=== PATIENT | female | born 1960 | race African-American/Black ===

== ENCOUNTER → 2016-12-18 | Outpatient (CLI) | payer OTHER | LOC: WI 07:44 | PROVIDERS: ATTEND Internal Medicine Geriatric Medicine | DX: N63 Unspecified lump in breast (principal) | CPT/HCPCS: 76642; G0204; 77066 ==

== ENCOUNTER 2017-07-23 07:35 | Day surgery (SDC) | payer OTHER ==
--- NOTE | 2017-07-17 11:12 | HISTORY AND PHYSICAL E ---
History and Physical NAME: MIRANDA VASQUEZ : 1960 AGE: 57Y ADMITTED: 07/23/2017 ROOM: CHIEF COMPLAINT: Patient has rectal bleeding; change in bowel habits; reflux. A planned colonoscopy. HISTORY OF PRESENT ILLNESS: Upper scope done recently showing gastritis, esophagitis, duodenitis. She did have an ultrasound of the abdomen which was essentially negative. The patient was seen in 2013 for abdominal pain. Patient presented at this time regarding colon exam. The patient is being seen by Dr. Rosales. Patient presented with changed bowel habits and rectal bleeding. I saw her in 2013 for abdominal pain, severe exacerbation of reflux. REVIEWING OF SYSTEMS: CARDIAC: Negative. ENDOCRINE: Patient has a mass. GASTROINTESTINAL: Reflux. ONCOLOGY/HEMATOLOGY: Negative. FAMILY HISTORY: Father had CA, prostate. Mom has diabetes. PHYSICAL EXAMINATION: VITAL SIGNS: Blood pressure 120/80. Pulse 80. Respirations 18. Temperature is 98. HEAD, EYES, NOSE, THROAT: Normal. NECK: Is supple. LUNGS: Are clear. ABDOMEN: Soft. NEUROLOGIC: Examination negative. MEDICATIONS: Are: 1. Tramadol. 2. Vicodin. 3. Zyrtec. 4. Percocet. 5. Levaquin. 6. She takes Mylanta, Dexilant, and Zantac. CONCLUSION: 1. COLON SCREENING. 2. RECTAL BLEEDING PLAN: Admit 07/23/2017. Today is 07/16/2017. DICTATING PHYSICIAN: AMBROSIO AJ M.D. [id number] [id number] Y#: [id number] ID: [id number] JOB#: [id number] ACCT: [id number] cc:HAI ROSALES M.D., MAHMOUD M.D. >
--- NOTE | 2017-07-22 13:00 | HISTORY AND PHYSICAL E ---
History and Physical NAME: MIRANDA VASQUEZ : 1960 AGE: 57Y ADMITTED: 07/23/2017 ROOM: CHIEF COMPLAINT: Patient admitted for colon screening. HISTORY OF PRESENT ILLNESS: The patient presented for colon screening. I saw her in 2013. Upper scope showed no ulcers, negative H pylori. Her primary is Dr. Rosales. The patient had upper scope. She does have reflux. Upper scope done revealed the following: She did have esophagitis, localized erosions in the duodenum, not bleeding; no ulcers. Her primary is Dr. Rosales. Ultrasound shows no significant intra-abdominal changes. Again, the patient has abdominal pain. PAST MEDICAL HISTORY: The patient has adrenal mass. PAST SURGICAL HISTORY: The patient did have: 1. . 2. C-spine fusion. 3. Hysterectomy. MEDICATIONS: The patient takes: 1. Mylanta. 2. Zantac. 3. Dexilant. 4. Jagruti. 5. Claritin. FAMILY HISTORY: Father had CA of the diabetes. Mom had diabetes. REVIEWING OF SYSTEMS: ENDOCRINE: She has adrenal mass. ONCOLOGY/HEMATOLOGY: Negative. PHYSICAL EXAMINATION: GENERAL: Pleasant, alert, oriented. VITAL SIGNS: Blood pressure 120/80, pulse 80, respirations 16, temperature is 98. HEAD, EYES, EARS, NOSE, THROAT: Normal. ABDOMEN: Soft. NEUROLOGIC: Exam negative. CONCLUSION: 1. Colon screening. 2. Abdominal pain. 3. Reflux. PLAN: Patient for colon screening, changed bowel habits, rectal bleeding, bloating, reflux. The plan is colon screening. DICTATING PHYSICIAN: AMBROSIO AJ M.D. [id number] [id number] [facility]#: [id number] ID: [id number] JOB#: [id number] ACCT: [id number] cc:HAI ROSALES M.D., MAHMOUD M.D. >
[~2017-07-23 07:35] MED LIST: EPINEPHRINE INJ 1 MG/10 ML DISP.SYRIN ONE; FLUMAZENIL INJ 0.5 MG/5 ML VIAL ONE; GLUCAGON,HUMAN RECOMB 1 MG INJ ONE; GLYCOPYRROLATE INJ 0.4 MG/2 ML VIAL ONE; NALOXONE HCL INJ/PF 0.4 MG/1 ML SDV ONE; ONDANSETRON HCL INJ/PF 4 MG/2 ML SDV ONE
[2017-07-23] MEDS: MIDAZOLAM 2 MG/2 ML INJ ONE ×2 (08:16→08:25)
[2017-07-23] MEDS: FENTANYL CITRATE INJ/PF 100 MCG/2 ML AMPUL ONE ×2 (08:18→08:22)
[2017-07-23 09:48] VITALS: BP 110/60
[2017-07-23 11:03] LABS: ABSOLUTE MONOCYTES (AUTO) 0.3 10^3/uL (0.1-1.4); ABSOLUTE NEUT (AUTO) 3.8 10^3/uL (1.7-8.2); BASOPHILS % (AUTO) 0.5 % (0-2); EOSINOPHILS % (AUTO) 0.7 % (0-6); HEMATOCRIT 41.8 % (36.0-47.0); HEMOGLOBIN 13.5 g/dL (12.0-15.5); HGB HCT DIFFERENCE -1.3; LYMPHOCYTES % (AUTO) 19.3 % (13-45); MEAN CORPUSCULAR HEMOGLOBIN 27.2 pg (27.0-33.4); MEAN CORPUSCULAR HGB CONC 32.3 g/dL (32.0-36.0); MEAN CORPUSCULAR VOLUME 84 fl (80-97); MONOCYTES % (AUTO) 6.3 % (3-13); RED BLOOD COUNT 4.96 10^6/uL (3.72-5.28); RED CELL DISTRIBUTION WIDTH 13.1 % (11.5-14.0); SEGMENTED NEUTROPHILS % (AUTO) 73.2 % (42-78); WHITE BLOOD COUNT 5.2 10^3/uL (4.0-10.5)
--- NOTE | 2017-07-23 13:28 | OPERATIVE REPORT E ---
Operative Report NAME: MIRANDA VASQUEZ : 1960 AGE: 57Y DATE OF SURGERY: 07/23/2017 ROOM: PREOPERATIVE DIAGNOSIS: Blood in the stool and abdominal pain. POSTOPERATIVE DIAGNOSES: 1. Mild external hemorrhoids. 2. Diminutive polyp, rectosigmoid junction. PROCEDURE: Colonoscopy to the cecum. SURGEON: AMBROSIO AJ M.D. ANESTHESIA: Versed 5 mg and Fentanyl 100 mcg. TISSUE REMOVED OR ALTERED: Polyp biopsied, rectosigmoid junction, 2 mm, benign. No active bleeding. Mild external hemorrhoids. RECOMMENDATIONS: Full liquid diet today, baseline CBC, consider follow-up colonoscopy after 3-5 years, most likely 5. PROCEDURE: Patient's colonoscopy was difficult. She had a partial hysterectomy with adhesions, difficulty of straightening the scope in the sigmoid/descending colon. Rectal exam: External hemorrhoids, mild. Rectosigmoid junction 2 mm polyp, biopsied, removed by biopsy. Descending colon difficult to intubate, high splenic. Transverse colon normal. Ascending/cecum normal. Ileocecal valve visualized. Scope withdrawn, cecum, ascending, transverse, descending, sigmoid all the way to the rectum. CONCLUSIONS: Difficult colonoscopy, benign looking polyp removed by biopsy. PLAN: 1. Baseline CBC. 2. Full liquid diet today. 3. Awaiting biopsy results. Consider follow-up colonoscopy in 3-5 years, most likely 5 years, pending biopsy results. DICTATING PHYSICIAN: AMBROSIO AJ M.D. 1209M [id number] PHY#: [id number] ID: [id number] JOB#: [id number] ACCT: [id number] cc:HAI CASTORENA M.D. [facility] AMBROSIO AJ M.D. >
--- NOTE | 2017-07-23 13:33 | DISCHARGE SUMMARY E ---
Discharge Summary NAME: MIRANDA VASQUEZ : 1960 AGE: 57Y ADMITTED: 07/23/2017 DISCHARGED: 07/23/2017 PROCEDURE: Colonoscopy and biopsy. FINAL DIAGNOSES: 1. Diminutive polyp, rectosigmoid junction, 2 mm, removed by biopsy. 2. Mild external hemorrhoids. PLAN: 1. Soft low-residue diet for 3 days. 2. Full liquids today. 3. Baseline CBC. 4. Hold aspirin. 5. Consider follow-up colonoscopy in 5 years. DICTATING PHYSICIAN: AMBROSIO AJ M.D. 1209M [id number] PHY#: [id number] ID: [id number] JOB#: [id number] ACCT: [id number] cc:HAI CASTORENA M.D. [facility] AMBROS[facility] M.D. >
== END 2017-07-23 10:10 | disposition home or self-care (01) ==
LOC: END 07:35
PROVIDERS: ATTEND Specialist
DX: D12.7 Benign neoplasm of rectosigmoid junction (principal); K64.4 Residual hemorrhoidal skin tags; Z79.899 Other long term (current) drug therapy; Z79.891 Long term (current) use of opiate analgesic
CPT/HCPCS: 45380; 36415; 85025; 88305 ×2; J2250; J3010; J1610; J2405; J0171; J2310; J3490

== ENCOUNTER → 2017-12-22 | Outpatient (CLI) | payer OTHER ==
--- NOTE | 2017-12-22 15:13 | WOMENS IMAGING REPORT ---
EXAM DESCRIPTION: BILAT SCREENING MAMMO W/CAD COMPLETED DATE/TIME: 12/22/2017 7:43 am REASON FOR STUDY: SCREENING MAMMO Z12.31 ENCNTR SCREEN MAMMOGRAM FOR MALIGNANT NEOPLASM OF ELOY COMPARISON: 2013 to 2016 TECHNIQUE: Standard craniocaudal and mediolateral oblique views of each breast recorded using digita l acquisition. LIMITATIONS: None. FINDINGS: No masses, calcifications or architectural distortion. No areas of suspicion. Read with the assistance of CAD. .[facility] - R2 Cenova Version 1.3 .[facility] Imaging - R2 Cenova Version 1.3 .[facility] Imaging - R2 Cenova Version 2.4 .[facility] - R2 Cenova Version 2.4 .[facility] - R2 Mold Filler And Drainer Version 9.2 IMPRESSION: NORMAL MAMMOGRAM. BIRADS 1. BREAST DENSITY: b. There are scattered areas of fibroglandular density. BIRAD: 1 NEGATIVE RECOMMENDATION: ROUTINE SCREENING COMMENT: The patient has been notified of the results by letter per MQSA requirements. Additional no tification policies are in place for contacting patient with suspicious or incomplete findings. Quality ID #[id number]: The [employer] recommends an annual screening mammogram for women aged 40 years or over. This facility utilizes a reminder system to ensure that all patients receive reminder letters, and/or direct phone calls for appointments. This includes reminders for routine scr eening mammograms, diagnostic mammograms, or other Breast Imaging Interventions when appropriate. Th is patient will be placed in the appropriate reminder system. The [employer] (ACR) has developed recommendations for screening MRI of the breast s in certain patient populations, to be used in conjunction with mammography. Breast MRI surveillanc e may be appropriate for women with more than 20% lifetime risk of developing breast cancer as deter mined by genetic testing, significant family history of the disease, or history of mantle radiation f or Hodgkins Disease. ACR Practice Guidelines 2008. TECHNICAL DOCUMENTATION: FINDING NUMBER: (1) ASSESSMENT: (1) JOB ID: [id number] [employer]- All Rights Reserved Reading location - IP/workstation name: [email or web address]
== END ==
LOC: WI 07:10
PROVIDERS: ATTEND Internal Medicine Geriatric Medicine
DX: Z12.31 Encounter for screening mammogram for malignant neoplasm of breast (principal)
CPT/HCPCS: 77067

== ENCOUNTER → 2018-06-26 | Outpatient (CLI) | payer OTHER ==
--- NOTE | 2018-06-26 13:06 | WOMENS IMAGING REPORT ---
EXAM DESCRIPTION: BILAT DIAGNOSTIC MAMMO W/CAD; U/S BREAST UNILAT LIMITED COMPLETED DATE/TIME: 06/26/2018 9:43 am; 06/26/2018 10:26 am REASON FOR STUDY: BILATERAL BREAST LUMPS N63.10,N63.20; RT BREAST LUMP N63.10; LT BREAST N63.20 N63. 10 UNSPECIFIED LUMP IN THE RIGHT BREAST, UNSPECIFIED KASEY N63.20 UNSPECIFIED LUMP IN THE LEFT BREAST , UNSPECIFIED QUAD COMPARISON: Multiple since 2008 TECHNIQUE: Standard craniocaudal and mediolateral oblique views of each breast recorded using digita l acquisition. Bilateral 90 mediolateral views were obtained. Bilateral cone compression lower inner quadrant righ t and left breasts in areas of questionable palpable abnormality. Bilateral breast ultrasound was also performed LIMITATIONS: None. FINDINGS: RIGHT BREAST MASSES: No suspicious masses. CALCIFICATIONS: No new or suspicious calcifications. ARCHITECTURAL DISTORTION: None. DEVELOPING DENSITY: None. ASYMMETRY: None noted. OTHER: No other significant findings. LEFT BREAST MASSES: No suspicious masses. CALCIFICATIONS: No new or suspicious calcifications. ARCHITECTURAL DISTORTION: None. DEVELOPING DENSITY: None. ASYMMETRY: None noted. OTHER: Old stereotactic biopsy clip far left upper outer quadrant, 15 cm from the nipple Read with the assistance of CAD: .[facility] - R2 Cenova Version 1.3 .[facility] Imaging - R2 Cenova Version 1.3 .[facility] Imaging - R2 Cenova Version 2.4 .[facility] - R2 Cenova Version 2.4 .[facility] - R2 Key Carrier Version 9.2 Bilateral breast ultrasound: Patient indicates a palpable abnormality right breast 6 o'clock position and 1 to 2 o'clock position. Ultrasound of these areas demonstrate normal fibroglandular tissue without worrisome acoustic absor ption. No cysts. No solid lesions. No focal findings. Patient indicates a palpable abnormality in the left breast at the 6 o'clock and 7 to 8 o'clock posit ion. Ultrasound of these areas demonstrate normal fibroglandular tissue without worrisome acoustic a bsorption. No cysts. No solid lesions. No focal findings. IMPRESSION: No mammographic or sonographic evidence for malignancy bilaterally BREAST DENSITY: b. There are scattered areas of fibroglandular density. BIRAD: 2 Benign findings. RECOMMENDATION: RECOMMENDED FOLLOW UP: Please continue yearly bilateral screening mammography/tomosy nthesis in June 2019. Clinical follow-up for palpable abnormalities. SPECIFIC INTERVENTION/IMAGING/CONSULTATION RECOMMENDED:No additional intervention/ imaging/consultati on needed at this time. COMMUNICATION:Patient notified by letter COMMENT: The patient has been notified of the results by letter per SA requirements. Additional no tification policies are in place for contacting patient with suspicious or incomplete findings. Quality ID #[id number]: The [employer] recommends an annual screening mammogram for women aged 40 years or over. This facility utilizes a reminder system to ensure that all patients receive reminder letters, and/or direct phone calls for appointments. This includes reminders for routine scr eening mammograms, diagnostic mammograms, or other Breast Imaging Interventions when appropriate. Th is patient will be placed in the appropriate reminder system. The [employer] (ACR) has developed recommendations for screening MRI of the breast s in certain patient populations, to be used in conjunction with mammography. Breast MRI surveillanc e may be appropriate for women with more than 20% lifetime risk of developing breast cancer as deter mined by genetic testing, significant family history of the disease, or history of mantle radiation f or Hodgkins Disease. ACR Practice Guidelines 2008. TECHNICAL DOCUMENTATION: FINDING NUMBER: (1) ASSESSMENT: (1) JOB ID: [id number] [employer]- All Rights Reserved Reading location - IP/workstation name: [facility]
--- NOTE | 2018-06-26 13:06 | WOMENS IMAGING REPORT ---
EXAM DESCRIPTION: BILAT DIAGNOSTIC MAMMO W/CAD; U/S BREAST UNILAT LIMITED COMPLETED DATE/TIME: 06/26/2018 9:43 am; 06/26/2018 10:26 am REASON FOR STUDY: BILATERAL BREAST LUMPS N63.10,N63.20; RT BREAST LUMP N63.10; LT BREAST N63.20 N63. 10 UNSPECIFIED LUMP IN THE RIGHT BREAST, UNSPECIFIED KASEY N63.20 UNSPECIFIED LUMP IN THE LEFT BREAST , UNSPECIFIED QUAD COMPARISON: Multiple since 2008 TECHNIQUE: Standard craniocaudal and mediolateral oblique views of each breast recorded using digita l acquisition. Bilateral 90 mediolateral views were obtained. Bilateral cone compression lower inner quadrant righ t and left breasts in areas of questionable palpable abnormality. Bilateral breast ultrasound was also performed LIMITATIONS: None. FINDINGS: RIGHT BREAST MASSES: No suspicious masses. CALCIFICATIONS: No new or suspicious calcifications. ARCHITECTURAL DISTORTION: None. DEVELOPING DENSITY: None. ASYMMETRY: None noted. OTHER: No other significant findings. LEFT BREAST MASSES: No suspicious masses. CALCIFICATIONS: No new or suspicious calcifications. ARCHITECTURAL DISTORTION: None. DEVELOPING DENSITY: None. ASYMMETRY: None noted. OTHER: Old stereotactic biopsy clip far left upper outer quadrant, 15 cm from the nipple Read with the assistance of CAD: .[facility] - R2 Cenova Version 1.3 .[facility] Imaging - R2 Cenova Version 1.3 .[facility] Imaging - R2 Cenova Version 2.4 .[facility] - R2 Cenova Version 2.4 .[facility] - R2 Insurance And Benefits Clerk Version 9.2 Bilateral breast ultrasound: Patient indicates a palpable abnormality right breast 6 o'clock position and 1 to 2 o'clock position. Ultrasound of these areas demonstrate normal fibroglandular tissue without worrisome acoustic absor ption. No cysts. No solid lesions. No focal findings. Patient indicates a palpable abnormality in the left breast at the 6 o'clock and 7 to 8 o'clock posit ion. Ultrasound of these areas demonstrate normal fibroglandular tissue without worrisome acoustic a bsorption. No cysts. No solid lesions. No focal findings. IMPRESSION: No mammographic or sonographic evidence for malignancy bilaterally BREAST DENSITY: b. There are scattered areas of fibroglandular density. BIRAD: 2 Benign findings. RECOMMENDATION: RECOMMENDED FOLLOW UP: Please continue yearly bilateral screening mammography/tomosy nthesis in June 2019. Clinical follow-up for palpable abnormalities. SPECIFIC INTERVENTION/IMAGING/CONSULTATION RECOMMENDED:No additional intervention/ imaging/consultati on needed at this time. COMMUNICATION:Patient notified by letter COMMENT: The patient has been notified of the results by letter per SA requirements. Additional no tification policies are in place for contacting patient with suspicious or incomplete findings. Quality ID #225: The [employer] recommends an annual screening mammogram for women aged 40 years or over. This facility utilizes a reminder system to ensure that all patients receive reminder letters, and/or direct phone calls for appointments. This includes reminders for routine scr eening mammograms, diagnostic mammograms, or other Breast Imaging Interventions when appropriate. Th is patient will be placed in the appropriate reminder system. The [employer] (ACR) has developed recommendations for screening MRI of the breast s in certain patient populations, to be used in conjunction with mammography. Breast MRI surveillanc e may be appropriate for women with more than 20% lifetime risk of developing breast cancer as deter mined by genetic testing, significant family history of the disease, or history of mantle radiation f or Hodgkins Disease. ACR Practice Guidelines 2008. TECHNICAL DOCUMENTATION: FINDING NUMBER: (1) ASSESSMENT: (1) JOB ID: [id number] [employer]- All Rights Reserved Reading location - IP/workstation name: [facility]
--- NOTE | 2018-06-26 13:06 | WOMENS IMAGING REPORT ---
EXAM DESCRIPTION: BILAT DIAGNOSTIC MAMMO W/CAD; U/S BREAST UNILAT LIMITED COMPLETED DATE/TIME: 06/26/2018 9:43 am; 06/26/2018 10:26 am REASON FOR STUDY: BILATERAL BREAST LUMPS N63.10,N63.20; RT BREAST LUMP N63.10; LT BREAST N63.20 N63. 10 UNSPECIFIED LUMP IN THE RIGHT BREAST, UNSPECIFIED KASEY N63.20 UNSPECIFIED LUMP IN THE LEFT BREAST , UNSPECIFIED QUAD COMPARISON: Multiple since 2008 TECHNIQUE: Standard craniocaudal and mediolateral oblique views of each breast recorded using digita l acquisition. Bilateral 90 mediolateral views were obtained. Bilateral cone compression lower inner quadrant righ t and left breasts in areas of questionable palpable abnormality. Bilateral breast ultrasound was also performed LIMITATIONS: None. FINDINGS: RIGHT BREAST MASSES: No suspicious masses. CALCIFICATIONS: No new or suspicious calcifications. ARCHITECTURAL DISTORTION: None. DEVELOPING DENSITY: None. ASYMMETRY: None noted. OTHER: No other significant findings. LEFT BREAST MASSES: No suspicious masses. CALCIFICATIONS: No new or suspicious calcifications. ARCHITECTURAL DISTORTION: None. DEVELOPING DENSITY: None. ASYMMETRY: None noted. OTHER: Old stereotactic biopsy clip far left upper outer quadrant, 15 cm from the nipple Read with the assistance of CAD: .[facility] - R2 Cenova Version 1.3 .[facility] Imaging - R2 Cenova Version 1.3 .[facility] Imaging - R2 Cenova Version 2.4 .[facility] - R2 Cenova Version 2.4 .[facility] - R2 Coding Compliance Auditor Version 9.2 Bilateral breast ultrasound: Patient indicates a palpable abnormality right breast 6 o'clock position and 1 to 2 o'clock position. Ultrasound of these areas demonstrate normal fibroglandular tissue without worrisome acoustic absor ption. No cysts. No solid lesions. No focal findings. Patient indicates a palpable abnormality in the left breast at the 6 o'clock and 7 to 8 o'clock posit ion. Ultrasound of these areas demonstrate normal fibroglandular tissue without worrisome acoustic a bsorption. No cysts. No solid lesions. No focal findings. IMPRESSION: No mammographic or sonographic evidence for malignancy bilaterally BREAST DENSITY: b. There are scattered areas of fibroglandular density. BIRAD: 2 Benign findings. RECOMMENDATION: RECOMMENDED FOLLOW UP: Please continue yearly bilateral screening mammography/tomosy nthesis in June 2019. Clinical follow-up for palpable abnormalities. SPECIFIC INTERVENTION/IMAGING/CONSULTATION RECOMMENDED:No additional intervention/ imaging/consultati on needed at this time. COMMUNICATION:Patient notified by letter COMMENT: The patient has been notified of the results by letter per SA requirements. Additional no tification policies are in place for contacting patient with suspicious or incomplete findings. Quality ID #225: The [employer] recommends an annual screening mammogram for women aged 40 years or over. This facility utilizes a reminder system to ensure that all patients receive reminder letters, and/or direct phone calls for appointments. This includes reminders for routine scr eening mammograms, diagnostic mammograms, or other Breast Imaging Interventions when appropriate. Th is patient will be placed in the appropriate reminder system. The [employer] (ACR) has developed recommendations for screening MRI of the breast s in certain patient populations, to be used in conjunction with mammography. Breast MRI surveillanc e may be appropriate for women with more than 20% lifetime risk of developing breast cancer as deter mined by genetic testing, significant family history of the disease, or history of mantle radiation f or Hodgkins Disease. ACR Practice Guidelines 2008. TECHNICAL DOCUMENTATION: FINDING NUMBER: (1) ASSESSMENT: (1) JOB ID: [id number] [employer]- All Rights Reserved Reading location - IP/workstation name: [facility] [place]
== END ==
LOC: WI 09:51
PROVIDERS: ATTEND Internal Medicine Geriatric Medicine
DX: N63.10 Unspecified lump in the right breast, unspecified quadrant (principal); N63.20 Unspecified lump in the left breast, unspecified quadrant
CPT/HCPCS: 76642; 77066

== ENCOUNTER → 2018-12-15 | Outpatient (CLI) | payer OTHER ==
[2018-12-15 16:18] LABS: ALANINE AMINOTRANSFERASE 81 U/L (9-52); ALBUMIN 4.3 g/dL (3.5-5.0); ALKALINE PHOSPHATASE 85 U/L (38-126); ANION GAP 10 (5-19); ASPARTATE AMINO TRANSFERASE 53 U/L (14-36); BILIRUBIN,DIRECT 0.3 mg/dL (0.0-0.4); BILIRUBIN,TOTAL 1.2 mg/dL (0.2-1.3); BLOOD UREA NITROGEN 10 mg/dL (7-20); CALCIUM 9.9 mg/dL (8.4-10.2); CARBON DIOXIDE 29 mmol/L (22-30); CHLORIDE 105 mmol/L (98-107); GLUCOSE 77 mg/dL (75-110); POTASSIUM 4.3 mmol/L (3.6-5.0); SODIUM 144.1 mmol/L (137-145); TOTAL PROTEIN 7.3 g/dL (6.3-8.2)
[2018-12-15 16:38] LABS: FREE T3 3.11 pg/mL (2.77-5.27); FREE T4 (FREE THYROXINE) 1.06 ng/dL (0.78-2.19)
[2018-12-15 16:52] LABS: THYROID STIMULATING HORMONE 0.92 uIU/mL (0.47-4.68)
== END ==
LOC: OD 14:06
PROVIDERS: ATTEND Internal Medicine Geriatric Medicine
DX: E03.9 Hypothyroidism, unspecified (principal)
CPT/HCPCS: 36415; 80053; 84436; 84439; 84443; 84481; 86376

== ENCOUNTER → 2018-12-31 | Outpatient (CLI) | payer OTHER ==
--- NOTE | 2018-12-31 11:18 | WOMENS IMAGING REPORT ---
EXAM DESCRIPTION: BILAT SCREENING MAMMO W/CAD COMPLETED DATE/TIME: 12/31/2018 10:59 am REASON FOR STUDY: ROUTINE BILATERAL SCREENING;Z12.31 Z12.31 ENCNTR SCREEN MAMMOGRAM FOR MALIGNANT N EOPLASM OF ELOY COMPARISON: [id number] EXAM PARAMETERS: Standard craniocaudal and mediolateral oblique views of each breast recorded using digital acquisition. Read with the assistance of CAD. .[facility] 2Nd Pressman Version 9.2 LIMITATIONS: None. FINDINGS: No suspicious masses, suspicious calcifications or architectural distortion. No areas of s uspicion. IMPRESSION: ASSESSMENT: Negative MAMMOGRAM. BIRADS 1 BREAST DENSITY: b. There are scattered areas of fibroglandular density. BIRAD: 1 NEGATIVE RECOMMENDATION: ROUTINE SCREENING COMMENT: The patient has been notified of the results by letter per MQSA requirements. Additional no tification policies are in place for contacting patient with suspicious or incomplete findings. Quality ID #[id number]: The [employer] recommends an annual screening mammogram for women aged 40 years or over. This facility utilizes a reminder system to ensure that all patients receive reminder letters, and/or direct phone calls for appointments. This includes reminders for routine scr eening mammograms, diagnostic mammograms, or other Breast Imaging Interventions when appropriate. Th is patient will be placed in the appropriate reminder system. TECHNICAL DOCUMENTATION: FINDING NUMBER: (1) ASSESSMENT: (1) JOB ID: [id number] [employer]- All Rights Reserved Reading location - IP/workstation name: [email or web address]
== END ==
LOC: WI 14:26
PROVIDERS: ATTEND Internal Medicine Geriatric Medicine
DX: Z12.31 Encounter for screening mammogram for malignant neoplasm of breast (principal)
CPT/HCPCS: 77067

== ENCOUNTER → 2020-01-04 | Outpatient (CLI) | payer OTHER ==
--- NOTE | 2020-01-04 15:16 | WOMENS IMAGING REPORT ---
EXAM DESCRIPTION: 3D SCREENING MAMMO BILAT IMAGES COMPLETED DATE/TIME: 01/04/2020 2:10 pm REASON FOR STUDY: ROUTINE BILATERAL SCREENING;Z12.31 Z12.31 ENCNTR SCREEN MAMMOGRAM FOR MALIGNANT N EOPLASM OF ELOY COMPARISON: 2015 to 2018 EXAM PARAMETERS: Views: Standard craniocaudal and mediolateral oblique views of each breast recorded using digital acquisition and breast tomosynthesis. Read with the assistance of CAD. .[facility] - [employer] Project Drilling Engineer Version 9.2 LIMITATIONS: None. FINDINGS: No suspicious masses, suspicious calcifications or architectural distortion. No areas of c oncern. IMPRESSION: NEGATIVE MAMMOGRAM. BIRADS 1. BREAST DENSITY: b. There are scattered areas of fibroglandular density. BIRAD: ASSESSMENT: 1 NEGATIVE RECOMMENDATION: ROUTINE SCREENING COMMENT: The patient has been notified of the results by letter per MQSA requirements. Additional no tification policies are in place for contacting patient with suspicious or incomplete findings. Quality ID #225: The [employer] recommends an annual screening mammogram for women aged 40 years or over. This facility utilizes a reminder system to ensure that all patients receive reminder letters, and/or direct phone calls for appointments. This includes reminders for routine scr eening mammograms, diagnostic mammograms, or other Breast Imaging Interventions when appropriate. Th is patient will be placed in the appropriate reminder system. TECHNICAL DOCUMENTATION: FINDING NUMBER: (1) ASSESSMENT: (1) JOB ID: [id number] 2010 [employer]- All Rights Reserved Reading location - IP/workstation name: [email or web address]
== END ==
LOC: WI 09:40
PROVIDERS: ATTEND Internal Medicine Geriatric Medicine
DX: Z12.31 Encounter for screening mammogram for malignant neoplasm of breast (principal)
CPT/HCPCS: 77063; 77067

== ENCOUNTER → 2020-05-11 | Outpatient (CLI) | payer OTHER ==
--- NOTE | 2020-05-11 14:30 | RADIOLOGY REPORT (SQ) ---
EXAM DESCRIPTION: CT ABD/PELVIS ORAL ONLY IMAGES COMPLETED DATE/TIME: 05/11/2020 1:04 pm REASON FOR STUDY: (R10.31)RIGHT LOWER QUADRANT PAIN R10.31 RIGHT LOWER QUADRANT PAIN COMPARISON: 04/16/2015 TECHNIQUE: CT scan of the abdomen and pelvis performed with oral contrast and no intravenous contras t. Images reviewed with lung, soft tissue, and bone windows. Reconstructed coronal and sagittal MPR i mages reviewed. All images stored on PACS. All CT scanners at this facility use dose modulation, iterative reconstruction, and/or weight based d osing when appropriate to reduce radiation dose to as low as reasonably achievable (ALARA). [facility]: Dose Right [facility]: CareDose [facility]: Dose Right [facility]: Teradose 4D [facility]: [employer] RADIATION DOSE: CT Rad equipment meets quality standard of care and radiation dose reduction techniq ues were employed. CTDIvol: 4.2 mGy. DLP: 193 mGy-cm.mGy. LIMITATIONS: None. FINDINGS: LOWER CHEST: No significant findings. No nodules or infiltrates. NON-CONTRASTED LIVER, SPLEEN, ADRENALS: Evaluation limited by lack of IV contrast. Incidental note i s made of a 2.5 x 1.8 x 2.0 cm circumscribed nodular density within the right adrenal gland. This le shawanda demonstrates a coarse peripheral calcification and both retrospectively present and unchanged re lative to 2015 CT imaging. 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 PANCREAS: No masses. No peripancreatic inflammatory changes. GALLBLADDER: No identified stones by CT criteria. No inflammatory changes to suggest cholecystitis. RIGHT KIDNEY AND URETER: No solid masses. No significant calcification. No hydronephrosis or hydroure ter. LEFT KIDNEY AND URETER: No solid masses. No significant calcification. No hydronephrosis or hydrouret er. AORTA AND RETROPERITONEUM: No aneurysm. No retroperitoneal masses or adenopathy. BOWEL AND PERITONEAL CAVITY: Few sigmoid diverticula without focal inflammatory changes. APPENDIX: Normal. PELVIS, BLADDER, AND ABDOMINAL WALL: Status post hysterectomy. The ovaries are normal in size. No f ree fluid or pelvic lymphadenopathy. BONES: Degenerative changes are seen of the hips and spine. 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 OTHER: No other significant finding. IMPRESSION: No evidence of acute intra-abdominal infectious/inflammatory process. Chronic and incid ental findings as detailed above. TECHNICAL DOCUMENTATION: JOB ID: [id number] Quality ID # [id number]: Final reports with documentation of one or more dose reduction techniques (e.g., Au tomated exposure control, adjustment of the mA and/or kV according to patient size, use of iterative reconstruction technique) 2010 [employer]- All Rights Reserved Reading location - IP/workstation name: [email or web address]
== END ==
LOC: RAD 12:33
PROVIDERS: ATTEND Internal Medicine Geriatric Medicine
DX: R10.31 Right lower quadrant pain (principal)
CPT/HCPCS: 74176

== ENCOUNTER → 2020-08-31 | Outpatient (CLI) | payer OTHER ==
--- NOTE | 2020-08-31 14:38 | ER RDC ASSESSMENT REPORT ---
Intake - In the Last 14 days Have you traveled outside [place]?: No Have you been in close contact with someone CONFIRMED: Yes Worked in Healthcare?: No - Symptoms Subjective Fever(Clarinda feverish): No Chills: No Muscule Aches: No Runny Nose: No Sore Throat: No Cough (New or worsening chronic cough): No Shortness of breath: No Nausea or Vomiting: No Headache: No Abdominal Pain: No Diarrhea(3 or more loose stools in last 24 hours): No - Do you have any of the following Chronic lung disease: Asthma or emphysema or COPD: Yes Cystic Fibrosis: No Diabetes: No High Blood Pressure: No Cardiovascular Disease: Yes Chronic Kidney Disease: No Chronic Liver Disease: No Chronic blood disorder like Sickle Cell Disease: No Weak immune system due to disease or medication: No Neurologic condition that limits movement: No Developmental delay - Moderate to Severe: No Morbid Obesity (>100 pounds over ideal weight): No - Objective Temperature: 98.9 F Pulse Rate: 61 Respiratory Rate: 17 Blood Pressure: 115/53 O2 Sat by Pulse Oximetry: 100 Objective: Given above, testing performed: covid Disposition: Home; Selfcare General - General Stated Complaint: asymptomstic covid screen Time Seen by Provider: 08/31/20 14:10 Mode of Arrival: Ambulatory Information source: Patient - HPI Notes: Patient presents to clinic for COVID-19 testing after coming in close contact with another COVID 19 positive individual. Patient is asymptomatic. They deny any cough, shortness of breath, fever, chills, muscle aches, rhinorrhea, sore throat, nausea or vomiting, headache, abdominal pain or diarrhea. Patient has no acute medical concerns. - Related Data Allergies/Adverse Reactions: clarithromycin [From Biaxin] Allergy (Severe, Verified 07/21/17 13:33) Anaphylaxis fexofenadine HCl [From Jagruti] Allergy (Severe, Verified 07/21/17 13:33) tingling, numbness oxycodone HCl [From Percocet] Allergy (Severe, Verified 07/21/17 13:33) vomiting,nausea,itching,dizziness Soap [From Betadine] Allergy (Severe, Verified 07/21/17 13:33) swelling on skin fluticasone propionate [From Advair Diskus] Allergy (Intermediate, Verified 07/21/17 13:33) swelling leftside under bottom of ribs ketorolac tromethamine [From Toradol] Allergy (Intermediate, Verified 07/21/17 13:33) nightmares, restlessness latex [Latex] Allergy (Intermediate, Verified 07/21/17 13:33) swelling loratadine [From Claritin] Allergy (Intermediate, Verified 07/21/17 13:33) tingling sensation povidone-iodine [From Betadine] Allergy (Intermediate, Verified 07/21/17 13:33) swelling on contact with skin morphine sulfate [From MS Contin] Allergy (Mild, Verified 07/23/17 07:54) Vomiting acetaminophen [From Percocet] Allergy (Unknown, Verified 07/21/17 13:33) vomiting, nausea, dizziness, itching benzonatate [From Tessalon] Allergy (Unknown, Verified 07/23/17 07:52) GI upset cetirizine HCl [From Zyrtec] Allergy (Unknown, Verified 07/23/17 07:52) GI upset hydrocodone bitartrate [From Vicodin] Allergy (Unknown, Verified 07/21/17 13:56) Vomiting levofloxacin [From Levaquin] Allergy (Unknown, Verified 07/23/17 07:54) Generalized rash Salicylates * [Salicylates] Allergy (Unknown, Verified 07/21/17 13:33) tramadol HCl [From Ultram] Allergy (Unknown, Verified 07/21/17 13:33) aspirin [Aspirin] Allergy (Verified 07/21/17 13:33) diphenhydramine [From Benadryl] Allergy (Verified 07/21/17 13:56) Urticaria hydroxyzine Allergy (Verified 07/21/17 13:56) iodine Allergy (Verified 07/21/17 13:56) prednisolone Allergy (Verified 07/21/17 13:56) Quinolones Allergy (Verified 07/21/17 13:56) salmeterol xinafoate [From Advair Diskus] Allergy (Verified 07/21/17 13:33) Sulfa (Sulfonamide Antibiotics) Allergy (Verified 07/21/17 13:33) thenyldiamine Allergy (Verified 07/21/17 13:56) fluticasone [Fluticasone] Adverse Reaction (Intermediate, Verified 07/21/17 13:33) nose bleed BEDACON Allergy (Unknown, Uncoded 06/29/15 14:56) Past Medical History - General Information source: Patient - Social History Smoking Status: Never Smoker Family History: Other - Past Medical History Cardiac Medical History: Reports: Hx Hypercholesterolemia Denies: Hx Coronary Artery Disease, Hx Heart Attack, Hx Hypertension Pulmonary Medical History: Reports: Hx Asthma - ALLERGY INDUCED, Hx Pneumonia - LAST IN 2016 Denies: Hx Bronchitis, Hx COPD EENT Medical History: Reports: None Neurological Medical History: Reports: None. Denies: Hx Cerebrovascular Accident, Hx Seizures Endocrine Medical History: Reports: None Renal/ Medical History: Reports: None Malignancy Medical History: Reports: None GI Medical History: Reports: Hx Gastroesophageal Reflux Disease Musculoskeletal Medical History: Reports Hx Arthritis - KNEES Skin Medical History: Reports None Psychiatric Medical History: Reports: Hx Depression Infectious Medical History: Reports: None Past Surgical History: Reports: Hx Section - 2, Hx Hysterectomy, Hx Orthopedic Surgery - rt knee, Hx Tubal Ligation Physical Exam - General General appearance: Appears well, Alert In distress: None Notes: PHYSICAL EXAMINATION: GENERAL: Well-appearing and in no acute distress. HEAD: Atraumatic, normocephalic. EYES: sclera anicteric, conjunctiva are normal. ENT: nares patent. Moist mucous membranes. NECK: Normal range of motion, supple without lymphadenopathy. LUNGS: No increased work of breathing. Lung sounds CTAB and equal. No wheezes rales or rhonchi. HEART: Regular rate and rhythm without murmurs. ABDOMEN: Soft, nontender, normal bowel sounds, no guarding. EXTREMITIES: Normal range of motion, no pitting edema. No cyanosis. NEUROLOGICAL: A&O x 3. Normal speech. PSYCH: Normal mood, normal affect. SKIN: Warm, Dry, normal turgor, no rashes or lesions noted Patient Education/Counseling Counseling/Education: Patient presents for COVID 19 testing after close exposure to another person who has tested positive for COVID 19. Patient is asymptomatic at this time. Patient does not have emergency worrying symptoms such as difficulty breathing, shortness of breath, chest pain, pressure, confusion or cyanosis. Patient appears suitable for discharge as vital signs are stable and patient is nontoxic in appearance. Good return precautions have been discussed with patient, patient verbalized understanding and is agreeable with discharge plan of care at this time. Guidance for worsening S/SX: As a person under investigation for Covid 19, the [facility] Health and Human Services, division of public health advises you to adhere to the following guidance until your test results are reported to you. If your test result is positive, you will receive additional information from your provider and your local health department at that time. Remain at home until you are cleared by the health provider or public health authorities. Keep a log of visitors to your home, notify any visitors to your home of your isolation status. If you plan to move to a new address or leave the county, notify the local health department in your County. Call your doctor or seek care if you have an urgent medical need. Before seeking medical care, call ahead to get instructions from the provider before arriving at the medical office clinic or hospital. Notify them that you are being tested for the virus that causes Covid 19 so that arrangements can be made, as necessary, to prevent transmission to others in the healthcare setting. Next, notify the local health department in your county. If a medical emergency arises and you need to call 911, inform the first responders that you are being tested for the virus that causes Covid 19. Next, notify the local health department in your county. RDC Discharge - Discharge Clinical Impression: Encounter for screening laboratory testing for COVID-19 virus in asymptomatic patient, Exposure to COVID-19 virus Condition: Good Disposition: Home; Selfcare
[2020-08-31 14:41] VITALS: BP 115/53
== END ==
LOC: RDC 13:50
PROVIDERS: ATTEND Registered Nurse
DX: Z20.822 Contact with and (suspected) exposure to COVID-19 (principal); E78.00 Pure hypercholesterolemia, unspecified; J45.909 Unspecified asthma, uncomplicated; K21.9 Gastro-esophageal reflux disease without esophagitis; M17.0 Bilateral primary osteoarthritis of knee
CPT/HCPCS: 87635; 99202; 99211; C9803